=== PATIENT | male | born 1975 | race Hispanic/Latino ===

== ENCOUNTER 2020-01-16 12:27 | Emergency (ER) | payer SELFPAY ==
[~2020-01-16] VITALS: Ht 162.6 cm; Wt 64.5 kg
[~2020-01-16 12:27] MED LIST: AMARYL2 MG PO; LISINOPRIL20 MG PO; METFORMIN1000 MG PO; METFORMIN500 MG PO; NAPROSYN500 MG PO; ULTRAM50 MG OR
[2020-01-16 14:08] LABS: IMMATURE GRANULOCYTES 0.2 % (0.0-5.0); MEAN CELL VOLUME 91.5 fL CALC (80.0-100.0); MEAN CORPUSCULAR HGB 31.8 pG CALC (26.0-32.0); MEAN CORPUSCULAR HGB CONC 34.8 g/dL CAL (32.0-36.0); NEUT# 3.06 thou/uL (1.82-7.42); RED BLOOD COUNT 5.03 mill/uL (4.70-6.10); RED CELL DISTRI WIDTH 11.3 % (11.5-15.5)
[2020-01-16 14:44] LABS: ALBUMIN 4.9 g/dL (3.2-5.0); ALKALINE PHOSPHATASE 81 u/l (38-126); ANION GAP 16 (6-22 (CALC)); BUN 11 mg/dL (9-20); BUN/CREATININE RATIO 20 (12-20 (CALC)); CARBON DIOXIDE 25 mmol/l (22-30); CHLORIDE 96 mmol/l (95-108); CREATININE 0.6 mg/dL (0.7-1.3); GFR > 60 ML/MIN (>=60 (CALC)); GFR FOR AFR.AMER. > 60 ML/MIN (>=60 (CALC)); POTASSIUM 4.9 mmol/l (3.5-5.1); SGOT/AST 58 u/l (17-59); SODIUM 132 mmol/l (137-146); TOTAL PROTEIN 7.8 g/dL (6.3-8.2)
[2020-01-16 14:45] LABS: BILIRUBIN, TOTAL 0.5 mg/dL (0.0-1.4)
[2020-01-16 17:03] VITALS: BP 157/92
== END 2020-01-16 16:50 | disposition home or self-care (01) | DRG 179 ==
LOC: ED 12:27
PROVIDERS: Family Medicine
DX: U07.1 COVID-19 (principal); E11.65 Type 2 diabetes mellitus with hyperglycemia

== ENCOUNTER 2020-01-24 10:18 | Inpatient (IN) | payer SELFPAY ==
[~2020-01-24] VITALS: Ht 162.6 cm; Wt 60.0 kg
--- NOTE | 2020-01-24 10:35 | NUR ---
PT DIRECTLY TO ROOM VIA WHEELCHAIR FOR BEDSIDE TRIAGE
[2020-01-24 11:31] LABS: HEMATOCRIT 45.1 % (39.0-50.0); HEMOGLOBIN 15.8 g/dl (14.0-18.0); IMMATURE GRANULOCYTES 0.2 % (0.0-5.0); MEAN CELL VOLUME 90.4 fL CALC (80.0-100.0); MEAN CORPUSCULAR HGB 31.7 pG CALC (26.0-32.0); NEUT# 3.66 thou/uL (1.82-7.42); RED BLOOD COUNT 4.99 mill/uL (4.70-6.10); RED CELL DISTRI WIDTH 10.8 % (11.5-15.5)
--- NOTE | 2020-01-24 11:35 | NUR ---
PT IS RESTING COMFORTABLY WAITING ON RESULTS
[2020-01-24 11:46] LABS: ALBUMIN 4.2 g/dL (3.2-5.0); ALKALINE PHOSPHATASE 84 u/l (38-126); ANION GAP 16 (6-22 (CALC)); BILIRUBIN, TOTAL 0.6 mg/dL (0.0-1.4); BUN 9 mg/dL (9-20); BUN/CREATININE RATIO 16 (12-20 (CALC)); CARBON DIOXIDE 26 mmol/l (22-30); CHLORIDE 92 mmol/l (95-108); CREATININE 0.6 mg/dL (0.7-1.3); GFR > 60 ML/MIN (>=60 (CALC)); GFR FOR AFR.AMER. > 60 ML/MIN (>=60 (CALC)); SGOT/AST 43 u/l (17-59); SODIUM 130 mmol/l (137-146); TOTAL PROTEIN 7.3 g/dL (6.3-8.2)
[2020-01-24 11:47] LABS: POTASSIUM 3.9 mmol/l (3.5-5.1)
[2020-01-24 11:58] LABS: MYOGLOBIN 20 ng/mL (0 - 121)
--- NOTE | 2020-01-24 12:22 | NUR ---
PT IS RESTING ON STRETCHER
[2020-01-24 13:07] LABS: C-REACTIVE PROTEIN 17.9 mg/dL (0-0.9)
--- NOTE | 2020-01-24 13:22 | NUR ---
PATIENT IS RESTING AND AWARE OF ADMISSION
[2020-01-24 13:32] LABS: URINE BILIRUBIN - DIPSTICK NEGATIVE (NEGATIVE); URINE BLOOD DIPSTICK NEGATIVE (NEGATIVE); URINE COLOR YELLOW; URINE GLUCOSE - DIPSTICK 500 mg/dL (NEGATIVE); URINE KETONE >=80 mg/dL (NEGATIVE); URINE LEUK ESTERASE NEGATIVE (NEGATIVE); URINE NITRITE - DIPSTICK NEGATIVE (Negative); URINE PROTEIN - DIPSTICK 100 mg/dL (NEG-TRACE); URINE SPECIFIC GRAVITY 1.025; URINE UROBILINOGEN - DIPSTICK 0.2 E.U./dL (0.2)
[2020-01-24 13:50] LABS: URINE RBC 0-2 RBC/hpf (0-5); URINE SQUAMOUS EPITHELIAL CELL FEW EPI/hpf (0-FEW)
--- NOTE | 2020-01-24 14:22 | NUR ---
PATIENT IS RESTING AWAITING ROOM ASSIGNMENT
--- NOTE | 2020-01-24 15:39 | NUR ---
PATIENT IS RESTIN SHOULD BE GOING TO THE ROOM SOON. NO DISTRESS NOTED
--- NOTE | 2020-01-24 15:40 | NUR ---
Admission Note Report Given to: HARINI Transported by: X Wheelchair Stretcher Transported with: X Nurse Transporter X Patent IV X O2 Shank Sorter Location: ICU X [facility]
--- NOTE | 2020-01-24 15:50 | NUR ---
PT ARRIVED TO UNIT VIA WHEELCHAIR WITH ER STAFF; ALERT AND ORIENTED; ICELAND[place] SPEAKING ONLY. AMBULATED TO BATHROOM INDEPENDENTLY TO VOID. PLACED ON AIRBORNE/CONTACT PRECAUTIONS FOR POSITIVE OUTPATIENT COVID SWAB RESULTS. PT C/O MILD HEADACHE. RESPIRATIONS EVEN AND UNLABORED ON OXYGEN 2L VIA NC. ORIENTED TO ROOM AND CALL LIGHT SYSTEM. PLAN OF CARE DISCUSSED. PT ENCOURAGED TO VERBALIZE CONCERNS. STATES UNDERSTANDING. SAFETY MEASURES IN PLACE. CALL LIGHT WITHIN REACH.
[2020-01-24 16:00] VITALS: BP 159/84
--- NOTE | 2020-01-24 16:00 | NUR ---
Admission Note Report Given to: HARINI Transported by: X Wheelchair Stretcher Transported with: X Nurse Transporter X Patent IV X O2 X Or Assistant Location: ICU X [facility]
--- NOTE | 2020-01-24 17:30 | NUR ---
ROCEPHIN AND ZITHROMAX INFUSED WITHOUT DIFFICULTY; IV SITE APPEARS HEALTHY AND FLUSHES. TELE ON. PT INDEPENDENT TO BATHROOM AND REAPPLYS OXYGEN. CALL LIGHT WITHIN REACH.
[2020-01-24 19:08] VITALS: BP 127/79
--- NOTE | 2020-01-24 19:45 | NUR ---
ASSESSMENT COMPLETED. NO DISTRESS NOTED. O2 INFUSING PER NC PER ORDER. DENIES NEEDS/PAIN. IV SITE PATENT AND SL. ENCOURAGED TO CALL FOR ANY NEEDS. CALL LIGHT IS IN REACH. WILL CONTINUE TO MONITOR.
--- NOTE | 2020-01-24 21:35 | NUR ---
PT. IN BED AND REPORTING HE WAS JUST SWEATING RECENTLY. TEMP CHECKED AND IS 97.7. WILL CONITINUE TO MONITOR. COOL WASHCLOTH PROVIDED. CALL LIGHT IS IN REACH. VOICES NO CONCERNS.
[2020-01-25] VITALS (7 sets, daily range): BP systolic 100–136; BP diastolic 67–87
--- NOTE | 2020-01-25 00:43 | NUR ---
[id number]. IS SWEATY TEMP CHECKED AND IS 96.1. PT. IS WET WITH SWEAT; GRANTS ANALYST OBTAINED ACCUCHECK AND IS 317 AT THIS TIME AND REPORTS HE TAKES METFORMIN AT HOME. PT. DID HAVE A CTA CHEST DONE TODAY AND IS UNABLE TO TAKE THIS MED TODAY R/T CONTRAST.PT. REPORTS HE FEELS OKAY AND DENIES PAIN. 0043- CALLED AND NOTIFIED DR. PUGA OF THE ABOVE NOTE. NEW ORDERS RECEIVED FOR INSULIN RECEIVED AND TO BE CARRIED OUT.
--- NOTE | 2020-01-25 04:03 | NUR ---
PT. RESTING IN BED WITH EYES OPEN, NO DISTRESS NOTED; SPO2 WNL AND TITRATED DOWN TO 1 LITER/MIN. ENCOURAGED TO CALL FOR ANY NEEDS.
[2020-01-25 05:04] LABS: HEMATOCRIT 45.7 % (39.0-50.0); HEMOGLOBIN 15.6 g/dl (14.0-18.0); IMMATURE GRANULOCYTES 0.8 % (0.0-5.0); MEAN CELL VOLUME 92.3 fL CALC (80.0-100.0); MEAN CORPUSCULAR HGB 31.5 pG CALC (26.0-32.0); MEAN CORPUSCULAR HGB CONC 34.1 g/dL CAL (32.0-36.0); NEUT# 1.56 thou/uL (1.82-7.42); RED BLOOD COUNT 4.95 mill/uL (4.70-6.10); RED CELL DISTRI WIDTH 10.9 % (11.5-15.5)
[2020-01-25] MEDS ORDERED: METFORMIN500 M2 PO (05:13)
[2020-01-25 05:44] LABS: ALKALINE PHOSPHATASE 73 u/l (38-126); BILIRUBIN, TOTAL 0.6 mg/dL (0.0-1.4); BUN 13 mg/dL (9-20); BUN/CREATININE RATIO 31 (12-20 (CALC)); CHLORIDE 102 mmol/l (95-108); CREATININE 0.4 mg/dL (0.7-1.3); GFR > 60 ML/MIN (>=60 (CALC)); GFR FOR AFR.AMER. > 60 ML/MIN (>=60 (CALC)); POTASSIUM 4.3 mmol/l (3.5-5.1); SGOT/AST 56 u/l (17-59); SODIUM 135 mmol/l (137-146); TOTAL PROTEIN 7.1 g/dL (6.3-8.2)
[2020-01-25 05:59] LABS: ANION GAP 21 (6-22 (CALC)); CARBON DIOXIDE 16 mmol/l (22-30)
--- NOTE | 2020-01-25 14:26 | NUR ---
PT REMAINS BEFORE, RESTS IN THE BED IN NO DISTRESS. LAB DRAWN FOR HGBA1C.
--- NOTE | 2020-01-25 17:24 | NUR ---
PT REMAINS AT REST IN THE BED, NO CHANGE IN STATUS, NO COMPLAINTS.
--- NOTE | 2020-01-25 20:05 | NUR ---
ASSESSMENT COMPLETED. NO DISTRESS NOTED; DENIES NEEDS/PAIN. IV SITE PATENT AND SL. O2 INFUSING PER NC @1 LITER/MIN. PT. REPORTING PRODUCTIVE COUGH; NO SPUTUM TO INSPECT NOW. ENCOURAGED TO CALL FOR ANY NEEDS.
[2020-01-26] VITALS (7 sets, daily range): BP systolic 109–173; BP diastolic 71–94
--- NOTE | 2020-01-26 00:08 | NUR ---
RESTING IN BED WITH NO DISTESS NOTED. DENEIES NEEDS. ENCOURAGED TO CALL FOR ANY NEEDS.
--- NOTE | 2020-01-26 02:00 | NUR ---
PT. RESTING IN BED WITH EYES CLOSED; AWAKENED AND DENIES NEEDS. ENCOURAGED TO CALL FOR ANY NEEDS.
--- NOTE | 2020-01-26 04:58 | NUR ---
PT. C/O AND MEDICATED WITH ORDERED PRN ROBITUSSIN; DENIES FURTHER NEEDS. CALL LIGHT IS IN REACH. NO DISTRESS NOTED.
--- NOTE | 2020-01-26 07:10 | NUR ---
REPORT RECEIVED FROM BECKY FRANKLIN. PT RESTING IN BED SEMI FOWLERS; ALERT AND ORIENTED; [place] SPEAKING ONLY. INDEPENDENT IN ROOM. DENIES PAIN. RESPIRATIONS EVEN AND UNLABORED ON ROOM AIR; SPO2 96%. IV SITE APPEARS HEALTHY AND FLUSHES. REMAINS ON AIRBORNE/CONTACT PRECAUTIONS FOR POSITIVE COVID RESULTS. SAFETY MEASURES IN PLACE. CALL LIGHT WITHIN REACH.
--- NOTE | 2020-01-26 10:15 | NUR ---
PT UP TO SHOWER INDEPENDENTLY.
--- NOTE | 2020-01-26 12:00 | NUR ---
BLOOD PRESSURE ELEVATED AFTER SHOWER; PT ENCOURAGED TO RELAX. AFTER LUNCH PT RESTING ON COUCH; BP DECREASED TO 109/73. NO COMPLAINTS OR CONCERNS AT THIS TIME. SPO2 93% ON ROOM AIR.
--- NOTE | 2020-01-26 16:10 | NUR ---
ROCEPHIN AND ZITHROMAX INFUSING AT THIS TIME. PT RESTING IN BED SEMI FOWLERS; ALERT AND ORIENTED. NO REQUESTS OR CONCERNS AT THIS TIME. CALL LIGHT WITHIN REACH.
--- NOTE | 2020-01-26 19:50 | NUR ---
REPORT FROM HARINI PENA. PT NOTED RESTING IN BED. NO APPARENT DISTRESS NOTED. PT ON RA, O2 PRN AT BEDSIDE. PT DENIES ANY PAIN OR DISCOMFORT. BP ELEVATED, WILL NOTIFY PHYSICIAN AND REASSESS. IV SITE APPEARS HEALTHY, FLUSHED EASILY. ROOF TRUSS MACHINE TENDER IN PLACE. DISCUSSED POC. PT VERBALIZED UNDERSTANDING. CALL LIGHT WITHIN REACH. WILL CONTINUE TO MONITOR.
--- NOTE | 2020-01-26 20:36 | NUR ---
PT BS 432 AND BP REMAINS ELEVATED. INTELLIGENCE INTERN PHYSICIAN NOTIFIED. ORDERS RECEIVED AT THIS TIME. WILL MEDICATED ONCE PROFILED BY PHARMACY. PT DENIES ANY PAIN OR DISCOMFORT. NO APPARENT DISTRESS NOTED.
--- NOTE | 2020-01-26 21:25 | NUR ---
PT MEDICATED ORDERED. DIABETIC SNACK PROVIDED AT THIS TIME. RN ON SHIFT TO ADMINISTER IV APRESOLINE FOR CURRENT MANUAL BP 192/110. DISCUSSED AND EDUCATED ON NEW MEDICATIONS, PT VERBALIZED UNDERSTANDING. WILL CONTINUE TO MONITOR AND REASSESS.
--- NOTE | 2020-01-26 23:00 | NUR ---
BP REASSESSED NOW 111/71. PT RESTING IN BED. NO APPARENT DISTRESS NOTED. CALL LIGHT WITHIN REACH. WILL CONTINUE TO MONITOR.
[2020-01-27 03:15] VITALS: BP 108/58
--- NOTE | 2020-01-27 04:42 | NUR ---
LABS OBTAINED. PT TOLERATED WELL. DENIES ANY PAIN OR DISCOMFORT. NO CURRENT WANTS OR NEEDS. CALL LIGHT WITHIN REACH. WILL CONTINUE TO MONITOR.
[2020-01-27 05:25] LABS: HEMATOCRIT 41.5 % (39.0-50.0); HEMOGLOBIN 14.7 g/dl (14.0-18.0); IMMATURE GRANULOCYTES 1.1 % (0.0-5.0); MEAN CELL VOLUME 89.4 fL CALC (80.0-100.0); MEAN CORPUSCULAR HGB 31.7 pG CALC (26.0-32.0); MEAN CORPUSCULAR HGB CONC 35.4 g/dL CAL (32.0-36.0); NEUT# 7.22 thou/uL (1.82-7.42); RED BLOOD COUNT 4.64 mill/uL (4.70-6.10); RED CELL DISTRI WIDTH 10.9 % (11.5-15.5)
[2020-01-27 05:47] LABS: ALBUMIN 3.5 g/dL (3.2-5.0); ALKALINE PHOSPHATASE 73 u/l (38-126); BUN 14 mg/dL (9-20); BUN/CREATININE RATIO 34 (12-20 (CALC)); C-REACTIVE PROTEIN 4.2 mg/dL (0-0.9); CHLORIDE 101 mmol/l (95-108); CREATININE 0.4 mg/dL (0.7-1.3); GFR > 60 ML/MIN (>=60 (CALC)); GFR FOR AFR.AMER. > 60 ML/MIN (>=60 (CALC)); POTASSIUM 3.6 mmol/l (3.5-5.1); SGOT/AST 27 u/l (17-59); SODIUM 133 mmol/l (137-146); TOTAL PROTEIN 6.3 g/dL (6.3-8.2)
[2020-01-27 05:49] LABS: ANION GAP 11 (6-22 (CALC)); CARBON DIOXIDE 25 mmol/l (22-30)
[2020-01-27 05:50] LABS: BILIRUBIN, TOTAL 0.3 mg/dL (0.0-1.4)
--- NOTE | 2020-01-27 07:30 | NUR ---
REPORT RECEIVED FROM TOMMY TEMPLE. PT RESTING IN BED SEMI FOWLERS; ALERT AND OREINTED. DENIES PAIN. RESPIRATIONS EVEN AND UNLABORED ON ROOM AIR; SPO2 94%. NON PRODUCTIVE COUGH CONTINUES. IV SITE APPEARS HEALTHY AND FLUSHES. SAFETY MEASURES IN PLACE. CALL LIGHT WITHIN REACH.
[2020-01-27 08:00] VITALS: BP 117/72
[2020-01-27 11:00] VITALS: BP 150/89
[2020-01-27] MEDS ORDERED: GUAIFENESI100 MG/51 PO (11:39)
[2020-01-27] MEDS ORDERED: METFORMIN500 M2 PO (11:39)
[2020-01-27] MEDS ORDERED: GLIPIZIDE5 M2 PO (11:39)
[2020-01-27] MEDS ORDERED: ZITHROMAX250 MG PO (11:39)
--- NOTE | 2020-01-27 12:06 | NUR ---
SHOWER TAKEN AND LINES CHANGED. PT NOW SITTING UP ON COUCH; TELE ON. ROBITUSSIN GIVEN FOR DRY COUGH. VSS. NO REQUESTS OR CONCERNS AT THIS TIME.
--- NOTE | 2020-01-27 14:14 | NUR ---
IV site discontinued, cath intact. No edema , no redness, voices no discomfort.
--- NOTE | 2020-01-27 14:24 | NUR ---
Discharge instructions given. Patient verbalizes understanding of same. Discharged in stable condition via Ambulatory to Home with family. All belongings sent with pt.
== END 2020-01-27 14:24 | disposition home or self-care (01) | DRG 177 ==
LOC: ED 10:18 → ED-I 13:20 → ED 13:21 → ED-I 13:22 → MS2 14:13
PROVIDERS: Emergency Medicine; Nurse Practitioner Family; ADMIT Internal Medicine; ATTEND Internal Medicine
DX: U07.1 COVID-19 (principal); J12.89 Other viral pneumonia; I10 Essential (primary) hypertension; E11.65 Type 2 diabetes mellitus with hyperglycemia; E78.5 Hyperlipidemia, unspecified; K21.9 Gastro-esophageal reflux disease without esophagitis; T38.0X5A Adverse effect of glucocorticoids and synthetic analogues, initial encounter; Z79.84 Long term (current) use of oral hypoglycemic drugs
CPT/HCPCS: J1650; Q9967

== ENCOUNTER 2020-03-14 12:31 | Observation (INO) | payer SELFPAY ==
[~2020-03-14] VITALS: Ht 165.1 cm; Wt 66.0 kg
[~2020-03-14 12:31] MED LIST changes: +GLIPIZIDE5 M2 PO; +GUAIFENESI100 MG/51 PO; +METFORMIN500 M2 PO; +ZITHROMAX250 MG PO
--- NOTE | 2020-03-14 12:50 | NUR ---
PT ARRIVES TO ROOM BY WHEELCHAIR FROM OUTSIDE AFTER PASSING OUT TODAY AT WORK. NO PAIN NOW, NO DIZZINESS. BS 344 UPON ARRIVAL.
[2020-03-14 13:20] LABS: HEMATOCRIT 46.6 % (39.0-50.0); HEMOGLOBIN 16.1 g/dl (14.0-18.0); IMMATURE GRANULOCYTES 0.4 % (0.0-5.0); MEAN CELL VOLUME 90.1 fL CALC (80.0-100.0); MEAN CORPUSCULAR HGB 31.1 pG CALC (26.0-32.0); MEAN CORPUSCULAR HGB CONC 34.5 g/dL CAL (32.0-36.0); NEUT# 9.03 thou/uL (1.82-7.42); RED BLOOD COUNT 5.17 mill/uL (4.70-6.10); RED CELL DISTRI WIDTH 11.8 % (11.5-15.5)
--- NOTE | 2020-03-14 13:30 | NUR ---
PT RESTING ON STRETCHER, RESPS EVEN AND UNLABORED. VSS. DENIES PAIN OR DISCOMFORT. VISITOR AT BEDSIDE. CALL LIGHT WITHIN REACH.
[2020-03-14 13:31] LABS: ALBUMIN 5.2 g/dL (3.2-5.0); ALKALINE PHOSPHATASE 76 u/l (38-126); ANION GAP 17 (6-22 (CALC)); BILIRUBIN, TOTAL 1.1 mg/dL (0.0-1.4); BUN 13 mg/dL (9-20); BUN/CREATININE RATIO 16 (12-20 (CALC)); CARBON DIOXIDE 28 mmol/l (22-30); CHLORIDE 96 mmol/l (95-108); CREATININE 0.8 mg/dL (0.7-1.3); GFR > 60 ML/MIN (>=60 (CALC)); GFR FOR AFR.AMER. > 60 ML/MIN (>=60 (CALC)); LIPASE 321 u/l (23-300); POTASSIUM 3.5 mmol/l (3.5-5.1); SGOT/AST 38 u/l (17-59); SODIUM 136 mmol/l (137-146); TOTAL PROTEIN 8.4 g/dL (6.3-8.2)
--- NOTE | 2020-03-14 14:05 | NUR ---
TO RADIOLOGY IN STABLE CONDITION VIA WHEELCHAIR.
[2020-03-14 14:34] LABS: URINE BILIRUBIN - DIPSTICK NEGATIVE (NEGATIVE); URINE BLOOD DIPSTICK NEGATIVE (NEGATIVE); URINE COLOR YELLOW; URINE GLUCOSE - DIPSTICK >=1000 mg/dL (NEGATIVE); URINE KETONE TRACE mg/dL (NEGATIVE); URINE LEUK ESTERASE NEGATIVE (NEGATIVE); URINE NITRITE - DIPSTICK NEGATIVE (Negative); URINE PROTEIN - DIPSTICK 100 mg/dL (NEG-TRACE); URINE UROBILINOGEN - DIPSTICK 0.2 E.U./dL (0.2)
[2020-03-14 14:49] LABS: URINE RBC 0-2 RBC/hpf (0-5); URINE WBC 0-2 WBC/hpf (0-5)
--- NOTE | 2020-03-14 14:54 | NUR ---
PT REPORTS HE HAS BEEN OUT OF CHOLESTEROL MEDICATION X1 YEAR AND HIS BP MEDICINE FOR ABOUT 4 MONTHS. HE DID TAKE HIS LAST METFORMIN AND LAST GLIPIZIDE THIS AM.
--- NOTE | 2020-03-14 15:22 | NUR ---
COVID SWAB COLLECTED, ISOLATION PRECAUTIONS INITIATED.
[2020-03-14 16:14] LABS: C-REACTIVE PROTEIN < 0.5 mg/dL (0-0.9)
--- NOTE | 2020-03-14 16:14 | NUR ---
NURSE TO NURSE REPORT CALLED TO PILY SANDERS, ROOM 289.
--- NOTE | 2020-03-14 16:20 | NUR ---
TO ROOM 289 IN STABLE CONDITION VIA WHEELCHAIR. BEDSIDE REPORT GIVEN TO PILY SANDERS.
--- NOTE | 2020-03-14 16:25 | NUR ---
REPORT RECFIEVED FROM BECKY SARMIENTO. PT ARRIVED FROM MED SURG ROOM 289 VIA PORTABLE IN STABLE CONDITION ACCOMPAINED BY BECKY SARMIENTO. INTRODUCED SELF TO PT AND DISCUSSED POC. PT IS SENEGALESE SPEAKING ONLY. PT CALLED FRIEND OVER PHONE TO ASSIST WITH TRANSLATION. ASSESSMENT AND VITALS COMPLETED AT THIS TIME. RESPIRASTIONS ARE EVEN AND UNLABORED. LUNG SOUNDS ARE CLEAR. HEART RHYTHM IS NORMAL WITH TELE IN PLACE. RADIAL AND PEDAL PULSES ARE STRONG WITH NORMAL CAPILLARY REFILL. #18G IN RFA FLUSHED AND NS STARTED AT 100ML PER ORDER, SITE APPEARS HEALTHY AND PATENT.SKIN IS WARM AND DRY WITH NO BREAKDOWN. PT COMPLAINS OF 5/10 HEADACHE, TYLENOL TO BE ADMINISTERED. PT INFORMS Visus TechnologyITTER THAT HE HAS BEEN TESTED POSITIVE BEFORE BEING RESWABBED TODAY, ISOLATION PRECAUTIONS IN PLACE. PT INFORMS Visus TechnologyITTER THAT HE HAS NO ALLERGIES, ALLERGY BAND APPLIED. PT ORIENTED TO ROOM AND CALL LIGHT SYSTEM. ALL SAFETY PRECAUTIONS ARE IN PLACE WITH CALL LIGHT IN REACH. WILL CONTINUE TO MONITOR
[2020-03-14 16:31] VITALS: BP 149/90
--- NOTE | 2020-03-14 18:03 | NUR ---
REASSESSMENT OF PAIN AT THIS TIME. PT STATES THAT HE NO LONGER HAS PAIN. RESPIRATIONS ARE EVEN AND UNLABORED. IV FLUIDS RUNNING AT 100ML ORDERED. ALL SAFETY PRECAUTIONS ARE IN PLACE WITH CALL LIGHT IN REACH AND ISOLATION PRECAUTIONS IN PLACE. WILL CONTINUE TO MONITOR
[2020-03-14 19:01] VITALS: BP 133/83
--- NOTE | 2020-03-14 19:01 | NUR ---
REPORT FROM TYRESE SANDERS. PT NOTED RESTING IN BED. ALERT AND ORIENTED. POLISH SPEAKING, PT DOES UNDERSTAND AND SPEAK SOME COLOMBIAN. NO APPARENT DISTRESS NOTED. PT DENIES ANY PAIN OR DIZZINESS. IVF INFUSING WITHOUT DIFFICULTY. IV SITE APPEARS HEALTHY. MATERIAL LISTER IN PLACE. DISCUSSED POC AND SAFETY PRECAUTIONS. PT VERBALIZED UNDERSTANDING. NO CURRENT WANTS OR NEEDS NOTED. CALL LIGHT WITHIN REACH. WILL CONTINUE TO MONITOR.
--- NOTE | 2020-03-14 21:46 | NUR ---
PT MEDICATED ORDERED. IVF INFUSING WITHOUT DIFFICULTY. PT DENIES ANY PAIN OR DIZZINESS AT THIS TIME. NO APPARENT DISTRESS NOTED. NO CURRENT WANTS OR NEEDS. CALL LIGHT WITHIN REACH. WILL CONTINUE TO MONITOR.
[2020-03-15 00:38] VITALS: BP 133/83
--- NOTE | 2020-03-15 01:10 | NUR ---
PT RESTING IN BED WITH EYES CLOSED. NO APPARENT DISTRESS NOTED. RESPIRATIONS EVEN AND UNLABORED. CALL LIGHT WITHIN REACH. WILL CONTINUE TO MONITOR.
[2020-03-15 04:52] VITALS: BP 140/91
--- NOTE | 2020-03-15 04:52 | NUR ---
PT RESTING IN BED. NO APPARENT RESPIRATORY DISTRESS NOTED. RESPIRATIONS EVEN AND UNLABORED. VSS. ASSISTED PT TO BATHROOM AT THIS TIME. 500ML CLEAR DARK YELLOW URINE EMPTIED FROM URINAL. PT INSTRUCTED TO CALL FOR ASSISTANCE BACK TO BED. CALL LIGHT WITHIN REACH. WILL CONTINUE TO MONITOR.
[2020-03-15 05:53] LABS: CHOLESTEROL HDL RATIO 4.3 (<4.4 (CALC)); MAGNESIUM 1.7 mg/dL (1.6-2.3)
[2020-03-15 07:38] VITALS: BP 155/97
--- NOTE | 2020-03-15 08:03 | NUR ---
PT SEEN AT REST IN THE BED, NO EVIDENCE OF DISTRESS. PT IS AMBULATORY IN ROOM NEEDED. LUNGS CLEAR, SLIGHTLY DECREASED TO RIGHT LUNGS, RA. BM TODAY. NO REPORT OF CHEST PAIN OR SHORTNESS OF BREATH.
--- NOTE | 2020-03-15 10:10 | NUR ---
REPORT RECEIVED FROM MOLLYRN
[2020-03-15] MEDS ORDERED: LISI20TA5 PO (10:29)
--- NOTE | 2020-03-15 10:45 | NUR ---
PT RESTING IN SEMI FOWLERS POSITION,A&O X3;INDONESIAN SPEAKING ONLY,TRANSLATION PROVIDED BY GEE[employer];RESPIRATIONS EVEN AND UNLABORED ON RA;PT DENIES ANY CURRENT PAIN OR DISCOMFORTS;TELE MONITORING IN PLACE;#18G TO LFA INFUSING NS @ 100ML/HR,SITE APPEARS HEALTHY;PT DENIES ANY ADDITIONAL NEEDS AT THIS TIME;VERBALIZES UNDERSTANDING ON PLANS TO DISCHARGE HOME;ENCOURAGED TO CALL FOR ASSISTANCE IF NEEDED;ALL SAFETY PRECAUTIONS IN PLACE WITH BED IN THE LOWEST POSITION AND CALL LIGHT IN REACH;WILL CONTINUE TO MONITOR
[2020-03-15 11:01] VITALS: BP 146/93
[2020-03-15] MEDS ORDERED: LISINOPRIL10 MG PO (11:05)
--- NOTE | 2020-03-15 12:31 | NUR ---
PT TRANSPORTED TO [facility] IN STABLE CONDITION VIA WHEELCHAIR ACCOMOANIED BY JAKOB RENE.
--- NOTE | 2020-03-15 12:40 | NUR ---
PT TRANSPORTED BACK TO MED/SURG ROOM 289 IN STABLE COMDITION VIA WHEELCHAIR ACCOMPANIED BY JAKOB RENE.
--- NOTE | 2020-03-15 13:25 | NUR ---
ALL DISCHARGE INSTRUCTIONS PROVIDED AT THIS TIME;PT INSTRUCTED TO TAKE ALL HOME MEDICATIONS THE SAME AND SELF ISOLATE;PT TO NOT RETURN TO WORK UNTIL COVID19 PCR RESULTS NEGATIVE;RX PROVIDED FOR LISINOPRIL AND METFORMIN;WORK RELEASE PROVIDED TO PT PER REQUEST AND COPY PLACED IN CHART;PT DENIES ANY ADDITIONAL NEEDS OR QUESTIONS AT THIS TIME;TRANSLATION FOR D/C PROVIDED BY GEE,OR JUAN;IV SITE REMOVED WITH CATHETER INTACT AND TELE MONITORING D/C;WHEELCHAIR TO BE PROVIDED FOR D/C HOME;FAMILY TO TRANSPORT PT HOME.WILL CONTINUE TO MONITOR
--- NOTE | 2020-03-15 13:36 | NUR ---
Discharge instructions given. Patient verbalizes understanding of same. Discharged in stable condition via Wheelchair to Home with family. All belongings sent with pt. PT TRANSPORTED TO [facility] IN STABLE CONDITION VIA WHEELCHAIR ACCOMPANIED BY THIS WRITTER.FAMILY TO TRANSPORT PT HOME.
== END 2020-03-15 13:36 | disposition home or self-care (01) | DRG 179 ==
LOC: ED 12:31 → ED-I 14:50 → ED 15:12 → MS2 15:13
PROVIDERS: Family Medicine; Nurse Practitioner; ADMIT Internal Medicine; ATTEND Internal Medicine
DX: U07.1 COVID-19 (principal); I10 Essential (primary) hypertension; E11.9 Type 2 diabetes mellitus without complications; E78.5 Hyperlipidemia, unspecified; K21.9 Gastro-esophageal reflux disease without esophagitis; Z79.84 Long term (current) use of oral hypoglycemic drugs
CPT/HCPCS: G0378; J1650

== ENCOUNTER 2023-02-20 19:22 | Emergency (ER) | payer SELFPAY ==
[2023-02-20] VITALS (14 sets, daily range): BP systolic 126–185; BP diastolic 75–100
[~2023-02-20] VITALS: Ht 165.1 cm; Wt 64.5 kg
[~2023-02-20 19:22] MED LIST changes: +LISI20TA5 PO; +LISINOPRIL10 MG PO
[2023-02-20 20:26] LABS: URINE COLOR YELLOW; URINE GLUCOSE - DIPSTICK NEGATIVE (NEGATIVE)
[2023-02-20 20:27] LABS: URINE BLOOD DIPSTICK TRACE-LYSED (NEGATIVE); URINE KETONE 15 mg/dL (NEGATIVE); URINE LEUK ESTERASE NEGATIVE (NEGATIVE); URINE NITRITE - DIPSTICK NEGATIVE (Negative); URINE PH 5.5 (4.5-8.0); URINE PROTEIN - DIPSTICK >=300 mg/dL (NEG-TRACE); URINE SPECIFIC GRAVITY >=1.030; URINE UROBILINOGEN - DIPSTICK 0.2 E.U./dL (0.2)
[2023-02-20 20:34] LABS: BASO% 0.5 % (0-3); HEMATOCRIT 42.3 % (39.0-50.0); HEMOGLOBIN 14.3 g/dl (14.0-18.0); IMMATURE GRANULOCYTES 0.3 % (0.0-5.0); LYMPH% 19.8 % (15-41); MEAN CELL VOLUME 92.8 fL CALC (80.0-100.0); MEAN CORPUSCULAR HGB 31.4 pG CALC (26.0-32.0); MEAN CORPUSCULAR HGB CONC 33.8 g/dL CAL (32.0-36.0); NEUT# 3.71 thou/uL (1.82-7.42); NEUT% 63.4 % (42-76); RED BLOOD COUNT 4.56 mill/uL (4.70-6.10); RED CELL DISTRI WIDTH 11.8 % (11.5-15.5)
[2023-02-20 20:37] LABS: URINE HYALINE CAST MANY lpf (NONE-RARE); URINE RBC 0-2 RBC/hpf (0-5); URINE SQUAMOUS EPITHELIAL CELL FEW EPI/hpf (0-FEW)
[2023-02-20 20:54] LABS: ALBUMIN 4.5 g/dL (3.2-5.0); ALKALINE PHOSPHATASE 61 u/l (38-126); AMYLASE 78 u/l (30-110); ANION GAP 15 (6-22 (CALC)); BILIRUBIN, TOTAL 0.7 mg/dL (0.2-1.3); BUN 24 mg/dL (9-20); BUN/CREATININE RATIO 23 (12-20 (CALC)); CARBON DIOXIDE 23 mmol/l (22-30); CHLORIDE 103 mmol/l (95-108); CREATININE 1.1 mg/dL (0.7-1.3); GFR FOR AFR.AMER. > 60 ML/MIN (>=60 (CALC)); GFR OTHER RACES > 60 ML/MIN (>=60 (CALC)); LIPASE 235 u/l (23-300); POTASSIUM 3.9 mmol/l (3.5-5.1); SGOT/AST 55 u/l (17-59); SODIUM 136 mmol/l (137-146); TOTAL PROTEIN 7.8 g/dL (6.3-8.2)
[2023-02-20] MEDS ORDERED: ONDANSETRON4 MG PO (22:39)
[2023-02-20] MEDS ORDERED: LOMOTIL2.5 MG PO (22:39)
[2023-02-20] MEDS ORDERED: CIPROFLOXACN500 MG PO (22:39)
== END 2023-02-20 23:02 | disposition home or self-care (01) | DRG 392 ==
LOC: ED 19:22
PROVIDERS: Emergency Medicine
DX: K52.9 Noninfective gastroenteritis and colitis, unspecified (principal); I10 Essential (primary) hypertension; E11.9 Type 2 diabetes mellitus without complications; Z79.84 Long term (current) use of oral hypoglycemic drugs; Z20.822 Contact with and (suspected) exposure to COVID-19